=== PATIENT | male | born 1995 | race Two or more races ===

== ENCOUNTER 2018-06-24 16:30 | Emergency (ER) | payer SELFPAY ==
[~2018-06-24] VITALS: Ht 182.9 cm; Wt 76.4 kg
[2018-06-24 19:36] VITALS: BP 104/54
== END 2018-06-24 19:38 | disposition home or self-care (01) ==
LOC: ED 17:24
DX: R07.2 Precordial pain (principal); M54.2 Cervicalgia; F17.200 Nicotine dependence, unspecified, uncomplicated
CPT/HCPCS: 71045; 93005; 99284